=== PATIENT | male | born 1995 | race American Indian/Alaskan Native ===

== ENCOUNTER 2020-04-07 20:49 | Emergency (ER) | payer SELFPAY ==
[2020-04-07 21:16] VITALS: BP 121/74
--- NOTE | 2020-04-07 23:14 | Emergency Department Report ---
- General Chief Complaint: Sore Throat Stated Complaint: SORE THROAT Time Seen by Provider: 04/07/20 23:03 Source: patient Mode of arrival: Ambulatory Limitations: No Limitations - History of Present Illness Initial Comments: 25-year-old -[place] male HIV-positive presents emerge department complaining of a few day history of non-progressing sore throat which he feels very strongly strep due to his previous history request treatment. States that he sees white patches and swelling tenderness to his throat MD Complaint: sore throat -: days(s) Severity: mild, moderate Quality: dull Consistency: constant Improves With: nothing Worsens With: nothing Associated Symptoms: sore throat. denies: myalgias, headache, rhinorrhea, nasal congestion, chest pain, shortness of breath, nausea, vomiting, diarrhea, confusion, right sweats, epistaxis, hoarseness - Related Data Previous Rx's Medication Instructions Recorded Last Taken Type Azithromycin [Zithromax TAB] 1,000 mg PO ONCE #2 tablet 12/18/19 Unknown Rx Doxycycline Hyclate [Doxycycline 100 mg PO Q12HR #14 tab 12/18/19 Unknown Rx Hyclate TAB] Albuterol Mdi (or & Nicu Only) 2 puff IH QID PRN #1 inhalation 04/07/20 Unknown Rx [ProAir HFA Inhaler] Clarithromycin [Biaxin] 500 mg PO BID #20 tab 04/07/20 Unknown Rx Fluticasone [Flonase] 1 spray NS QDAY #1 bottle 04/07/20 Unknown Rx HYDROcodone/APAP 5-325 [Van 1 each PO Q6HR PRN #14 tablet 04/07/20 Unknown Rx 5/325] Ondansetron [Zofran Odt] 4 mg PO Q8HR #10 tab.rapdis 04/07/20 Unknown Rx predniSONE [Deltasone] 20 mg PO QDAY #5 tab 04/07/20 Unknown Rx Allergies Allergy/AdvReac Type Severity Reaction Status Date / Time haloperidol [From Haldol] Allergy Unknown Verified 12/18/19 16:15 lorazepam [From Ativan] Allergy Unknown Verified 12/18/19 16:15 Penicillins Allergy Unknown Verified 12/18/19 16:15 ED Review of Systems ROS: Stated complaint: SORE THROAT Other details as noted in HPI Comment: All other systems reviewed and negative ED Past Medical Hx - Past Medical History Previous Medical History?: Yes Hx HIV: Yes - Surgical History Past Surgical History?: Yes Additional Surgical History: septoplasti - Social History Smoking Status: Never Smoker Substance Use Type: None - Medications Home Medications: Home Medications Medication Instructions Recorded Confirmed Last Taken Type Azithromycin [Zithromax TAB] 1,000 mg PO ONCE #2 tablet 12/18/19 Unknown Rx Doxycycline Hyclate [Doxycycline 100 mg PO Q12HR #14 tab 12/18/19 Unknown Rx Hyclate TAB] Albuterol Mdi (or & Nicu Only) 2 puff IH QID PRN #1 inhalation 04/07/20 Unknown Rx [ProAir HFA Inhaler] Clarithromycin [Biaxin] 500 mg PO BID #20 tab 04/07/20 Unknown Rx Fluticasone [Flonase] 1 spray NS QDAY #1 bottle 04/07/20 Unknown Rx HYDROcodone/APAP 5-325 [Van 1 each PO Q6HR PRN #14 tablet 04/07/20 Unknown Rx 5/325] Ondansetron [Zofran Odt] 4 mg PO Q8HR #10 tab.rapdis 04/07/20 Unknown Rx predniSONE [Deltasone] 20 mg PO QDAY #5 tab 04/07/20 Unknown Rx ED Physical Exam - General Limitations: No Limitations General appearance: alert, in no apparent distress - Head Head exam: Present: atraumatic, normocephalic - Eye Eye exam: Present: normal appearance, PERRL, EOMI - ENT ENT exam: Present: normal exam, mucous membranes moist, other (Pharynx is red with swelling and redness exudate is noted) - Neck Neck exam: Present: normal inspection, full ROM. Absent: tenderness, lymphadenopathy - Respiratory Respiratory exam: Present: normal lung sounds bilaterally. Absent: respiratory distress, wheezes, rhonchi, chest wall tenderness - Cardiovascular Cardiovascular Exam: Present: regular rate, normal rhythm. Absent: systolic murmur, diastolic murmur, rubs, gallop - GI/Abdominal GI/Abdominal exam: Present: soft, normal bowel sounds - Rectal Rectal exam: Present: deferred - Extremities Exam Extremities exam: Present: normal inspection - Back Exam Back exam: Present: normal inspection - Neurological Exam Neurological exam: Present: alert, oriented X3 - Psychiatric Psychiatric exam: Present: normal affect, normal mood - Skin Skin exam: Present: warm, dry, intact, normal color. Absent: rash ED Course Vital Signs 04/07/20 21:13 Temperature 98.2 F Pulse Rate 96 H Respiratory 18 Rate Blood Pressure 121/74 O2 Sat by Pulse 97 Oximetry ED Medical Decision Making - Medical Decision Making 25-year-old HIV-positive male with exudative pharyngitis very suggestive of strep alert and oriented x3 reports having fever earlier today. He was diagnosed with bronchitis symptoms with patient dehydration with Dr. Wheeler and discharged home with Flonase, albuterol, prednisone, hydrocodone. He is requesting antibiotics will treat him accordingly Critical care attestation.: If time is entered above; I have spent that time in minutes in the direct care of this critically ill patient, excluding procedure time. ED Disposition Clinical Impression: Exudative pharyngitis Disposition: DC-01 TO HOME OR SELFCARE Is pt being admited?: No Does the pt Need Aspirin: No Condition: Stable Instructions: Pharyngitis (ED) Prescriptions: Clarithromycin [Biaxin] 500 mg PO BID #20 tab Referrals: PRIMARY [facility]EM[facility] [Primary Care Provider] - 3-5 Days [facility] [Provider Group] - 3-5 Days
== END 2020-04-07 23:52 | disposition home or self-care (01) ==
LOC: ED 20:49
DX: J02.9 Acute pharyngitis, unspecified (principal); Z98.890 Other specified postprocedural states; Z79.2 Long term (current) use of antibiotics; Z79.899 Other long term (current) drug therapy; Z21 Asymptomatic human immunodeficiency virus [HIV] infection status; Z88.0 Allergy status to penicillin; Z88.8 Allergy status to other drugs, medicaments and biological substances
CPT/HCPCS: 99282